=== PATIENT | female | born 1985 | race African-American/Black ===

== ENCOUNTER 2017-08-08 21:21 | Emergency (ER) | payer OTHER ==
[~2017-08-08] VITALS: Ht 167.6 cm; Wt 73.0 kg
[2017-08-08 21:35] VITALS: BP 122/83
[2017-08-08] MEDS ORDERED: NKM (21:35)
[2017-08-08] MEDS ORDERED: Tetanus/Diptheria/Pertussis Vaccine 0.5ml Syr IM ONE (21:45)
--- NOTE | 2017-08-08 21:50 | Emergency Room Report ---
History of Present Illness General Chief Complaint: Animal Bite Source: Patient Present Illness HPI Is a 33-year-old female is right-hand dominant. 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 She was taking other dog who just had surgery. It bit her in the right arm. Her tetanus was 6-7 years ago. All shots up-to-date. No other injury. Occurred just prior to arrival. Allergies: Coded Allergies: No Known Allergies (Unverified , 08/08/17) Patient History Past Medical History: see triage record, old chart reviewed Past Surgical History: none Pertinent Family History: none Social History: Denies: smoking Last Menstrual Period: Aug Now: No Immunizations: other Reviewed Nursing Documentation: PMH: Agreed, PSxH: Agreed Nursing Documentation-PMH Past Medical History: No Stated History Review of Systems Eye: Denies: eye pain, blurred vision ENT: Denies: ear pain, nose congestion, throat swelling Respiratory: Denies: cough, shortness of breath Cardiovascular: Denies: chest pain, palpitations Gastrointestinal: Denies: abdominal pain, diarrhea, nausea, vomiting Musculoskeletal: Denies: back pain, joint pain Skin: Denies: rash Neurological: Denies: headache, numbness Endocrine: Denies: increased thirst, increased urine Hematologic/Lymphatic: Denies: easy bruising All Other Systems: negative except mentioned in HPI Physical Exam Vital Signs Date Time Temp Pulse Resp B/P (MAP) Pulse Ox O2 Delivery O2 Flow Rate FiO2 08/08/17 21:30 98.1 69 16 122/83 100 Room Air vitals normal Sp02 EP Interpretation: reviewed, normal General Appearance: well appearing, no apparent distress, alert Head: normocephalic, atraumatic Eyes: bilateral eye PERRL, bilateral eye EOMI ENT: hearing grossly normal, normal pharynx Neck: full range of motion, supple, no meningismus Respiratory: chest non-tender, lungs clear, normal breath sounds Cardiovascular #1: regular rate, rhythm, no murmur Gastrointestinal: normal bowel sounds, non tender, no mass, no organomegaly, no bruit, non-distended Musculoskeletal: back normal, gait/station normal, normal range of motion, other - Right mid forearm on the aspect, there is a 2 cm gaping laceration. There is surrounding contusion and mild edema. No foreign body. No tendon laceration. Radial pulses 2+. Neurologic: alert, oriented x3 Psychiatric: mood/affect normal Skin: warm/dry Procedures Laceration/Wound Repair Laceration/Wound Repair : Consent: Verbal Wound Location: upper extremity Wound's Depth, Shape: linear, irregular, contused tissue Wound Length (cm): 2 Wound Explored: clean Irrigated w/ Saline (ccs): 2000 Anesthesia: 1% Lidocaine Volume Anesthetic (ccs): 2 Wound Repaired With: sutures Suture Size/Type: 4:0, proline Number of Sutures: 1 Patient Tolerated: Well Complications: None Medical Decision Making Diagnostic Impression: Primary Impression: Dog bite of extremity ER Course Patient presents with a dog bite to the right forearm. Because was gaping I place one suture. She does have increased risk for infection. Told patient that the wound can be secondary closed in a couple days if no infection. Last Vital Signs Date Time Temp Pulse Resp B/P (MAP) Pulse Ox O2 Delivery O2 Flow Rate FiO2 08/08/17 21:30 98.1 69 16 122/83 100 Room Air Status: improved Disposition: HOME, SELF-CARE Condition: Stable Scripts Amoxicillin/Potassium Clav 875-125* (AUGMENTIN 875-125 TABLET*) 1 Each Tablet 1 TAB ORAL TWICE A DAY, #14 TAB Prov: KINA WALLACE M.D. 08/08/17 Additional Instructions: Followup with Worker's Comp. in 2 days for recheck. If wound showed no evidence of infection, it can be closed secondarily. Return if symptom worsen. Suture out in 7 days. KINA WALLACE M.D. Aug 08, 2017 21:50
[2017-08-08] MEDS ORDERED: AUGMENTIN 875-1 EAC1 ORAL (22:40)
[2017-08-08 22:52] VITALS: BP 122/83
== END 2017-08-08 22:52 | disposition home or self-care (01) ==
LOC: EMR 21:30
DX: S51.811A Laceration without foreign body of right forearm, initial encounter (principal); W54.0XXA Bitten by dog, initial encounter; Y92.9 Unspecified place or not applicable; Z23 Encounter for immunization
CPT/HCPCS: 90471; 90715; 99283